=== PATIENT | female | born 1950 | race Caucasian/White ===

== ENCOUNTER 2022-08-14 22:51 | Inpatient (IN) ==
[2022-08-14] MEDS ORDERED: fentaNYL 100 MCG/2 ML VIAL IV STA (23:20)
[2022-08-15 00:17] LABS: Calcium 8.9 MG/DL (8.5-10.1); Osmolality,Calculated 282.5 MOS/KG (273-304)
[2022-08-15 00:32] LABS: Basophils % 0.3 % (0.0-0.8); Eosinophils % 0.2 % (0.00-10.9); Hematocrit 36.4 VOL% (35.7-47.0); Hemoglobin 12.3 GM/DL (12.0-16.0); Immature Granulocytes % 1.1 %; Immature Granulocytes Absolute 0.13 #; Lymphocytes # 1.2 10*3/uL (1.4-4.0); Lymphocytes % 10.6 % (21.3-54.2); Mean Corpuscular HGB Conc 33.8 GM/DL (32-36); Mean Corpuscular Volume 94.8 FL (87-102); Monocytes # 0.5 10*3/uL (0.11-0.8); Monocytes % 3.9 % (1.7-12.7); Neutrophils % 83.9 % (38.7-73.9); Platelet Count 275 T/CUMM (130-400); Red Blood Count 3.84 MC/CUMM (3.8-5.5); Red Cell Distribution Width 11.9 % (9.3-17.3); White Blood Count 11.7 T/CUMM (4-12)
[2022-08-15 00:41] LABS: INR 0.9; PT Patient Result 10.3 SECS (10.1-12.1); Partial Thromboplastin Time 23.7 SECS (23.7-32.9)
[2022-08-15] MEDS ORDERED: hydrALAZINE 20 MG/1 ML VIAL IV PRN (02:55)
[2022-08-15] MEDS ORDERED: CLORAZEPATE 3.75 MG TABLET PO PRN (02:55)
[2022-08-15] MEDS ORDERED: ONDANSETRON 4 MG/2 ML VIAL IV PRN ×2 (02:55→18:51)
[2022-08-15] MEDS ORDERED: ZALEPLON 5 MG CAPSULE PO PRN (02:55)
[2022-08-15] MEDS: LACTATED RINGERS 1,000 ML IV SCH ×2 (04:24→15:21)
[2022-08-15 05:37] LABS: Mucus,Urine Occasional /LPF (Occasional); RBC,Urine 16 /HPF (0-4)
[2022-08-15 05:38] LABS: Urine Appearance Clear (Clear); Urine Color Yellow (Yellow)
[2022-08-15 05:39] LABS: Bilirubin,Urine Negative (Negative); Blood, Urine Moderate mg/dL (Negative); Glucose,Urine (UA) Negative (Negative); Ketones,Urine Negative (Negative); Nitrite,Urine Negative (Negative); Protein,Urine Negative (Negative); Urine Urobilinogen 0.2 eU/dL (<2.0); Urine pH 5.5 (4.5-8.0)
[2022-08-15 06:22] LABS: Albumin 3.2 G/DL (3.4-5.0); Bilirubin,Total 0.6 MG/DL (0.20-1.00); Calcium 8.7 MG/DL (8.5-10.1); Osmolality,Calculated 283.4 MOS/KG (273-304); Potassium 4.2 MMOL/L (3.5-5.1); Total Protein 6.9 G/DL (6.4-8.2)
[2022-08-15] MEDS: HYDROmorphone 1 MG/1 ML SYRINGE IV PRN ×2 (06:24→13:50)
[2022-08-15] MEDS ORDERED: ASPIRIN EC 81 MG TABLET PO SCH (09:00)
[2022-08-15] MEDS ORDERED: SIMVASTATIN 20 MG TABLET PO SCH (09:00)
[2022-08-15] MEDS ORDERED: hydroCHLOROthiazide 12.5 MG CAPSULE PO SCH (09:00)
[2022-08-15] MEDS: ENOXAPARIN 40 MG/0.4 ML SYRINGE SUBCUT SCH (10:32)
[2022-08-15] MEDS: LOSARTAN 50 MG TABLET PO SCH (10:32)
[2022-08-15] MEDS: TAMOXIFEN 10 MG TABLET PO SCH (10:32)
[2022-08-15] MEDS: PANTOPRAZOLE 40 MG TABLET PO SCH (10:32)
[2022-08-15] MEDS ORDERED: DEXTROSE 10% 250 ML BAG IV PRN (13:08)
[2022-08-15] MEDS ORDERED: LIDOCAINE 2% 5 ML VIAL ONE (16:31)
[2022-08-15] MEDS ORDERED: MIDAZOLAM 2 MG/2 ML VIAL ONE ×2 (16:31→17:52)
[2022-08-15] MEDS ORDERED: propofoL 200 MG/20 ML VIAL IV ONE (16:31)
[2022-08-15] MEDS ORDERED: buprenorphine HCL 0.3 MG/ML VIAL ONE (16:32)
[2022-08-15] MEDS ORDERED: fentaNYL 100 MCG/2 ML VIAL ONE (17:05)
[2022-08-15] MEDS ORDERED: ceFAZolin 1,000 MG VIAL ONE (17:09)
[2022-08-15] MEDS ORDERED: TRANEXAMIC ACID 1,000 MG/10 ML VIAL ONE (17:13)
[2022-08-15] MEDS ORDERED: PHENYLEPHRINE 1 MG/10 ML SYRINGE IV ONE (17:17)
[2022-08-15] MEDS ORDERED: ONDANSETRON 4 MG/2 ML VIAL ONE (17:17)
[2022-08-15] MEDS ORDERED: LACTATED RINGERS 1,000 ML IV ONE (17:28)
[2022-08-15] MEDS: INSULIN LISPRO 100 UNIT/ML SUBCUT SCH ×2 (17:50→22:17)
[2022-08-15] MEDS ORDERED: MEPERIDINE 25 MG/1 ML VIAL IV PRN (18:51)
[2022-08-16] MEDS: LACTATED RINGERS 1,000 ML IV SCH ×3 (00:07→22:01)
[2022-08-16] MEDS: ACETAMINOPHEN 325 MG TABLET PO PRN (03:29)
[2022-08-16 06:54] LABS: Basophils % 0.4 % (0.0-0.8); Eosinophils # 0.1 10*3/uL (0.0-0.87); Eosinophils % 1.2 % (0.00-10.9); Hematocrit 31.4 VOL% (35.7-47.0); Immature Granulocytes % 0.6 %; Immature Granulocytes Absolute 0.05 #; Lymphocytes # 1.3 10*3/uL (1.4-4.0); Lymphocytes % 14.6 % (21.3-54.2); Mean Corpuscular HGB Conc 32.5 GM/DL (32-36); Mean Corpuscular Volume 98.7 FL (87-102); Mean Platelet Volume 10.3 FL (9.6-12.0); Monocytes # 0.6 10*3/uL (0.11-0.8); Monocytes % 6.5 % (1.7-12.7); Neutrophils % 76.7 % (38.7-73.9); Red Blood Count 3.18 MC/CUMM (3.8-5.5); Red Cell Distribution Width 12.2 % (9.3-17.3); White Blood Count 9.1 T/CUMM (4-12)
[2022-08-16 06:59] LABS: Hemoglobin 10.2 GM/DL (12.0-16.0); Platelet Count 218 T/CUMM (130-400)
[2022-08-16 07:08] LABS: Calcium 8.3 MG/DL (8.5-10.1); Osmolality,Calculated 279.5 MOS/KG (273-304); Potassium 4.1 MMOL/L (3.5-5.1)
[2022-08-16] MEDS ORDERED: MAGNESIUM SULF RIDER 2 GM/50 ML PREMIX IV ONE (08:00)
[2022-08-16] MEDS: TAMOXIFEN 10 MG TABLET PO SCH (09:05)
[2022-08-16] MEDS: PANTOPRAZOLE 40 MG TABLET PO SCH (09:05)
[2022-08-16] MEDS: LOSARTAN 50 MG TABLET PO SCH (09:05)
[2022-08-16] MEDS: ENOXAPARIN 40 MG/0.4 ML SYRINGE SUBCUT SCH (09:06)
[2022-08-16] MEDS: INSULIN LISPRO 100 UNIT/ML SUBCUT SCH ×4 (10:25→22:09)
[2022-08-16 14:09] LABS: Amorphous Crystals,Urine Occasional /HPF (Few); Mucus,Urine Occasional /LPF (Occasional); RBC,Urine 1 /HPF (0-4); Squamous Epithelial Cell,Urine Occasional /HPF (0-10)
[2022-08-16 14:10] LABS: Bilirubin,Urine Negative (Negative); Blood, Urine Trace mg/dL (Negative); Glucose,Urine (UA) Negative (Negative); Ketones,Urine Negative (Negative); Nitrite,Urine Negative (Negative); Protein,Urine Negative (Negative); Urine Appearance Clear (Clear); Urine Color Yellow (Yellow); Urine Specific Gravity 1.032 (1.001-1.035); Urine Urobilinogen 0.2 eU/dL (<2.0); Urine pH 5.5 (4.5-8.0)
[2022-08-16] MEDS: SIMVASTATIN 20 MG TABLET PO SCH (22:01)
[2022-08-17 05:11] LABS: Basophils % 0.4 % (0.0-0.8); Eosinophils # 0.1 10*3/uL (0.0-0.87); Eosinophils % 0.7 % (0.00-10.9); Hematocrit 29.9 VOL% (35.7-47.0); Hemoglobin 9.4 GM/DL (12.0-16.0); Immature Granulocytes % 0.9 %; Immature Granulocytes Absolute 0.08 #; Lymphocytes # 1.8 10*3/uL (1.4-4.0); Lymphocytes % 19.3 % (21.3-54.2); Mean Corpuscular HGB Conc 31.4 GM/DL (32-36); Mean Corpuscular Volume 101.4 FL (87-102); Mean Platelet Volume 10.4 FL (9.6-12.0); Monocytes # 0.7 10*3/uL (0.11-0.8); Monocytes % 7.2 % (1.7-12.7); Neutrophils % 71.5 % (38.7-73.9); Platelet Count 177 T/CUMM (130-400); Red Blood Count 2.95 MC/CUMM (3.8-5.5); White Blood Count 9.1 T/CUMM (4-12)
[2022-08-17 05:39] LABS: Calcium 8.1 MG/DL (8.5-10.1); Osmolality,Calculated 274.8 MOS/KG (273-304)
[2022-08-17 05:47] LABS: Risk Ratio 2.02; VLDL Cholesterol 21.6 MG/DL
[2022-08-17] MEDS: LACTATED RINGERS 1,000 ML IV SCH ×3 (06:15→20:40)
[2022-08-17] MEDS: INSULIN LISPRO 100 UNIT/ML SUBCUT SCH ×4 (06:54→20:32)
[2022-08-17] MEDS ORDERED: LACTATED RINGERS 500 ML IV ONE (07:28)
[2022-08-17] MEDS: TAMOXIFEN 10 MG TABLET PO SCH (08:15)
[2022-08-17] MEDS: PANTOPRAZOLE 40 MG TABLET PO SCH (08:15)
[2022-08-17] MEDS: LOSARTAN 50 MG TABLET PO SCH (08:16)
[2022-08-17] MEDS: ENOXAPARIN 40 MG/0.4 ML SYRINGE SUBCUT SCH (08:30)
[2022-08-17] MEDS: ACETAMINOPHEN 325 MG TABLET PO PRN (18:18)
[2022-08-17] MEDS: SIMVASTATIN 20 MG TABLET PO SCH (20:31)
[2022-08-18 03:38] LABS: Basophils % 0.5 % (0.0-0.8); Eosinophils # 0.1 10*3/uL (0.0-0.87); Eosinophils % 1.4 % (0.00-10.9); Hematocrit 26.8 VOL% (35.7-47.0); Hemoglobin 8.9 GM/DL (12.0-16.0); Immature Granulocytes % 1.1 %; Lymphocytes # 1.4 10*3/uL (1.4-4.0); Lymphocytes % 15.4 % (21.3-54.2); Mean Corpuscular HGB Conc 33.2 GM/DL (32-36); Mean Corpuscular Volume 98.2 FL (87-102); Mean Platelet Volume 9.6 FL (9.6-12.0); Monocytes # 0.5 10*3/uL (0.11-0.8); Monocytes % 6.1 % (1.7-12.7); Neutrophils % 75.5 % (38.7-73.9); Platelet Count 163 T/CUMM (130-400); Red Blood Count 2.73 MC/CUMM (3.8-5.5); Red Cell Distribution Width 11.9 % (9.3-17.3); White Blood Count 8.8 T/CUMM (4-12)
[2022-08-18 03:59] LABS: Calcium 8.1 MG/DL (8.5-10.1); Osmolality,Calculated 276.8 MOS/KG (273-304); Potassium 4.2 MMOL/L (3.5-5.1)
[2022-08-18] MEDS: LACTATED RINGERS 1,000 ML IV SCH ×2 (06:45→14:00)
[2022-08-18] MEDS ORDERED: LACTATED RINGERS 500 ML IV ONE (07:17)
[2022-08-18] MEDS ORDERED: IBUPROFEN 400 MG TABLET PO PRN (07:21)
[2022-08-18] MEDS: PANTOPRAZOLE 40 MG TABLET PO SCH (08:31)
[2022-08-18] MEDS: LOSARTAN 50 MG TABLET PO SCH (08:31)
[2022-08-18] MEDS: ENOXAPARIN 40 MG/0.4 ML SYRINGE SUBCUT SCH (08:32)
[2022-08-18] MEDS: TAMOXIFEN 10 MG TABLET PO SCH (08:32)
[2022-08-18] MEDS: INSULIN LISPRO 100 UNIT/ML SUBCUT SCH ×4 (08:33→21:27)
[2022-08-18] MEDS: cefTRIAXone 1,000 MG in SODIUM CHLORIDE 0.9% 100 ML IV SCH (10:51)
[2022-08-18 11:05] LABS: Bacteria,Urine Many /HPF (Few); Mucus,Urine Occasional /LPF (Occasional); Squamous Epithelial Cell,Urine Occasional /HPF (0-10); Urine Appearance Clear (Clear); Urine Color Yellow (Yellow)
[2022-08-18 11:06] LABS: Bilirubin,Urine Negative (Negative); Blood, Urine Negative (Negative); Glucose,Urine (UA) Negative (Negative); Ketones,Urine Negative (Negative); Nitrite,Urine Positive (Negative); Protein,Urine Negative (Negative); Urine Specific Gravity 1.015 (1.001-1.035)
[2022-08-18] MEDS ORDERED: TUBERCULIN SKIN TEST 0.1 ML SYRINGE INTRADERM ONE (15:00)
[2022-08-18] MEDS: ACETAMINOPHEN 325 MG TABLET PO PRN (21:23)
[2022-08-18] MEDS: DOCUSATE SODIUM 100 MG CAPSULE PO SCH (21:26)
[2022-08-18] MEDS: SIMVASTATIN 20 MG TABLET PO SCH (21:26)
[2022-08-19] MEDS: LACTATED RINGERS 1,000 ML IV SCH ×2 (00:40→05:23)
[2022-08-19 05:38] LABS: Basophils % 0.3 % (0.0-0.8); Eosinophils # 0.2 10*3/uL (0.0-0.87); Hematocrit 26.3 VOL% (35.7-47.0); Hemoglobin 8.5 GM/DL (12.0-16.0); Immature Granulocytes % 1.1 %; Immature Granulocytes Absolute 0.09 #; Lymphocytes # 1.6 10*3/uL (1.4-4.0); Mean Corpuscular HGB Conc 32.3 GM/DL (32-36); Mean Corpuscular Volume 98.9 FL (87-102); Mean Platelet Volume 10.4 FL (9.6-12.0); Monocytes # 0.5 10*3/uL (0.11-0.8); Monocytes % 5.7 % (1.7-12.7); Neutrophils % 69.9 % (38.7-73.9); Platelet Count 189 T/CUMM (130-400); Red Blood Count 2.66 MC/CUMM (3.8-5.5); Red Cell Distribution Width 11.9 % (9.3-17.3); White Blood Count 7.9 T/CUMM (4-12)
[2022-08-19 05:55] LABS: Calcium 7.8 MG/DL (8.5-10.1); Osmolality,Calculated 279.5 MOS/KG (273-304); Potassium 4.1 MMOL/L (3.5-5.1)
[2022-08-19] MEDS ORDERED: BISACODYL 10 MG SUPP RECTAL ONE (08:23)
[2022-08-19] MEDS ORDERED: POLYETHYLENE GLYCOL POWDER 17 GM PACK PO SCH (09:00)
[2022-08-19] MEDS: INSULIN LISPRO 100 UNIT/ML SUBCUT SCH ×2 (09:05→11:46)
[2022-08-19] MEDS: ENOXAPARIN 40 MG/0.4 ML SYRINGE SUBCUT SCH (09:06)
[2022-08-19] MEDS: DOCUSATE SODIUM 100 MG CAPSULE PO SCH (09:06)
[2022-08-19] MEDS: TAMOXIFEN 10 MG TABLET PO SCH (09:06)
[2022-08-19] MEDS: LOSARTAN 50 MG TABLET PO SCH (09:06)
[2022-08-19] MEDS: PANTOPRAZOLE 40 MG TABLET PO SCH (09:06)
[2022-08-19] MEDS: cefTRIAXone 1,000 MG in SODIUM CHLORIDE 0.9% 100 ML IV SCH (09:30)
[2022-08-19 11:33] VITALS: BP 128/79
== END 2022-08-19 12:19 | disposition swing bed (61) | DRG 522 ==
LOC: EDBD → EDUNIT# → N.ED 22:51 → N.EDINP 08-15 02:55 → SUATTDRO 08-15 02:55 → N.3E 08-15 03:45
PROVIDERS: ADMIT Emergency Medicine; ATTEND Internal Medicine